=== PATIENT | male | born 1965 | race Caucasian/White ===

== ENCOUNTER 2017-09-06 20:00 | Emergency (ER) | END 2017-09-07 00:25 | disposition home or self-care (01) ==

== ENCOUNTER 2018-07-07 06:43 | Emergency (ER) | payer OTHER ==
[~2018-07-07] VITALS: Ht 157.5 cm; Wt 69.6 kg
[~2018-07-07 06:43] MED LIST: CIPR500T4 PO; HYDR-4011 PO; NAPR-985 PO; PHEN-537 PO; TAMS-14 PO
[2018-07-07 06:45] VITALS: Ht 157.5 cm; Wt 69.6 kg
[2018-07-07] MEDS ORDERED: KETOROLAC 30 MG INJ IV STA (07:00)
[2018-07-07] MEDS ORDERED: SOD CHLORIDE 0.9% 1,000 ML IV STA (07:00)
[2018-07-07] MEDS ORDERED: ONDANSETRON 4 MG INJ IV STA (07:00)
[2018-07-07] MEDS ORDERED: TAMS-14 PO (07:54)
[2018-07-07] MEDS ORDERED: IBUP-1542 PO (07:54)
[2018-07-07] MEDS ORDERED: HYDR-4011 PO (07:54)
[2018-07-07] MEDS ORDERED: ONDA4TAB8 PO (07:54)
--- NOTE | 2018-07-07 07:56 | ERD ---
ER Documentation Chief Complaint Chief Complaint LEFT SIDED ABD PAIN SINCE LAST NIGHT HPI 52 year old male presents the emergency department complaining of acute onset left flank and left lower quadrant pain. Patient reports the pain is sharp, stabbing, colicky. It radiates towards his groin. It is associated with no hematuria. It makes him nauseous but he has not vomited. He reports no fevers or chills. He reports no diarrhea. Currently he reports the pain is moderate to severe. ROS All systems reviewed and are negative except as per history of present illness. Medications Home Meds Active Scripts Tamsulosin Hcl* (Flomax*) 0.4 Mg Cap.er.24h, 0.4 MG PO QPM, #30 CAP Prov:MARY PAYTON 07/07/18 Ondansetron Hcl* (Zofran*) 4 Mg Tablet, 4 MG PO Q8H PRN for NAUSEA AND/OR VOMITING, #30 TAB Prov:MARY PAYTON 07/07/18 Hydrocodone/Acetaminophen ([place] 5-325 Tablet) 1 Each Tablet, 1 TAB PO Q6H PRN for PAIN, #7 TAB Prov:MARY PAYTON 07/07/18 Ibuprofen* (Ibuprofen*) 600 Mg Tablet, 600 MG PO Q6H PRN for PAIN, #30 TAB Prov:MARY PAYTON 07/07/18 Tamsulosin Hcl* (Flomax*) 0.4 Mg Cap.er.24h, 0.4 MG PO QPM, #15 CAP Prov:YG PEARL PA-C 09/06/17 Naproxen* (Naprosyn*) 500 Mg Tablet, 500 MG PO BID PRN for PAIN AND/OR INFLAMMATION, #30 TAB Prov:YG PEARL PA-C 09/06/17 Hydrocodone/Acetaminophen ([place] 5-325 Tablet) 1 Each Tablet, 1 TAB PO Q6H PRN for PAIN, #7 TAB Prov:MAIK KINGSLEY DO 11/28/15 Ciprofloxacin Hcl* (Ciprofloxacin Hcl*) 500 Mg Tablet, 500 MG PO BID for 3 Days, TAB Prov:MAIK KINGSLEY DO 11/28/15 Phenazopyridine Hcl* (Pyridium*) 100 Mg Tab, 100 MG PO TID PRN for URINARY PAIN, #8 TAB Prov:MAIK KINGSLEY DO 11/28/15 Allergies Allergies: Coded Allergies: No Known Allergy (Unverified , 11/28/15) PMhx/Soc History of Surgery: No Anesthesia Reaction: No Hx Neurological Disorder: No Hx Respiratory Disorders: No Hx Cardiac Disorders: Yes (HTN) Hx Psychiatric Problems: No Hx Miscellaneous Medical Probl: No Hx Alcohol Use: No Hx Substance Use: No Hx Tobacco Use: No Smoking Status: Never smoker FmHx Noncontributory for chief complaint Physical Exam Vitals Vital Signs Date Temp Pulse Resp B/P (MAP) Pulse Ox O2 O2 Flow FiO2 Time Delivery Rate 07/07/18 97.4 58 16 178/94 99 06:45 (122) Physical Exam GENERAL: The patient is well developed and appropriate for usual state of health in no apparent distress. He appears uncomfortable HEENT: Pupils equal, round, and reactive to light. EOMI. There is no scleral icterus. NECK: C-spine is soft and supple, there is no meningismus. There is no cervical lymphadenopathy. LUNGS: Clear to auscultation bilaterally. There are no rales, wheezes or rhonchi. HEART: Regular rate and rhythm, no murmurs, clicks, rubs or gallops. ABDOMEN: Soft, non-tender, non-distended. There are bowel sounds in all four quadrants. No rebound or guarding. EXTREMITIES: There is no peripheral cyanosis or edema. No focal swelling or erythema. NEURO: The patient moves all four extremities with 5/5 strength. Cranial nerves II - XII are intact. Normal gait. Alert and oriented SKIN: There is no apparent rash or petechiae. HEME/LYMPHATIC: There is no evidence of excessive bruising or lymphedema. PSYCHIATRIC: The patient does not appear anxious or depressed. Result Diagram: 07/07/18 0710 07/07/18 0710 Results 24 hrs Laboratory Tests Test 07/07/18 07:10 White Blood Count 7.8 10^3/ul Red Blood Count 4.79 10^6/ul Hemoglobin 15.2 g/dl Hematocrit 43.9 % Mean Corpuscular Volume 91.6 fl Mean Corpuscular Hemoglobin 31.7 pg Mean Corpuscular Hemoglobin Concent 34.6 g/dl Red Cell Distribution Width 12.3 % Platelet Count 205 10^3/UL Mean Platelet Volume 11.1 fl Immature Granulocytes % 0.500 % Neutrophils % 65.1 % Lymphocytes % 25.7 % Monocytes % 5.7 % Eosinophils % 2.2 % Basophils % 0.8 % Nucleated Red Blood Cells % 0.0 /100WBC Immature Granulocytes # 0.040 10^3/ul Neutrophils # 5.1 10^3/ul Lymphocytes # 2.0 10^3/ul Monocytes # 0.5 10^3/ul Eosinophils # 0.2 10^3/ul Basophils # 0.1 10^3/ul Nucleated Red Blood Cells # 0.0 10^3/ul Urine Color YELLOW Urine Clarity CLEAR Urine pH 5.0 Urine Specific [place] 1.014 Urine Ketones NEGATIVE mg/dL Urine Nitrite NEGATIVE mg/dL Urine Bilirubin NEGATIVE mg/dL Urine Urobilinogen NEGATIVE mg/dL Urine Leukocyte Esterase NEGATIVE Lita/ul Urine Microscopic RBC 13 /HPF Urine Microscopic WBC 1 /HPF Urine Hemoglobin 2+ mg/dL Urine Glucose NEGATIVE mg/dL Urine Total Protein NEGATIVE mg/dl Sodium Level 141 mmol/L Potassium Level 4.5 mmol/L Chloride Level 104 mmol/L Carbon Dioxide Level 26 mmol/L Anion Gap 11 Blood Urea Nitrogen 20 mg/dl Creatinine 1.20 mg/dl Est Glomerular Filtrat Rate mL/min > 60 mL/min Glucose Level 151 mg/dl Calcium Level 9.2 mg/dl Total Bilirubin 0.8 mg/dl Direct Bilirubin 0.00 mg/dl Indirect Bilirubin 0.8 mg/dl Aspartate Amino Transf (AST/SGOT) 22 IU/L Alanine Aminotransferase (ALT/SGPT) 29 IU/L Alkaline Phosphatase 70 IU/L Total Protein 7.5 g/dl Albumin 4.5 g/dl Globulin 3.00 g/dl Albumin/Globulin Ratio 1.50 Lipase 105 U/L Current Medications Medications Dose Sig/Eleanor Start Time Status Last (Trade) Ordered Route PRN Stop Time Admin Dose Reason Admin Sodium 1,000 ml @ Q1H STAT 07/07/18 07/07/18 Chloride 1,000 mls/hr IV 07:00 07:05 07/07/18 07:59 Ondansetron 4 mg ONCE STAT 07/07/18 DC 07/07/18 HCl (Zofran IV 07:00 07:05 Inj) 07/07/18 07:01 Ketorolac 30 mg ONCE STAT 07/07/18 DC 07/07/18 Tromethamine IV 07:00 07:06 (Toradol) 07/07/18 07:01 Procedures/MDM Patient was taken to a room, seen and evaluated. Comfort measures were initiated. Diagnostic tests were ordered and reviewed. 3 LEAD RHYTHM STRIP: Normal sinus rhythm without ectopy RADIOLOGY: Reviewed with the radiologist REEVALUATION: 0755: Diagnostic tests were appreciated. Patient was reevaluated. His pain was completely resolved. His examination remained benign. MEDICAL DECISION MAKIN-year old male presents the emergency room with left flank and left lower quadrant pain of uncertain etiology. Differential diagnosis entertained included kidney stone disease as well as other intra- abdominal concerns such as diverticulitis. After diagnostic evaluation, it appears clear that the patient's pain is from his kidney stone. There is no evidence of complicating factors including no evidence of ongoing infection. Patient will be treated supportively with pain medication but otherwise appears appropriate for discharge. Departure Diagnosis: Primary Impression: Kidney stone Condition: Stable Patient Instructions: Kidney Stone W/ Colic Additional Instructions: See your doctor for follow-up as discussed. Take a copy of your test results, i f appropriate, to this follow-up visit. See your doctor or return here if your symptoms do not improve as expected. At any time, please return to the emergency department for any change or worsening in her symptoms. MARY PAYTON Jul 07, 2018 07:56
[2018-07-07 08:14] VITALS: BP 147/79; PULSE 78; RESP 16
== END 2018-07-07 08:15 | disposition home or self-care (01) ==
LOC: E/R 06:43
DX: N20.0 Calculus of kidney (principal); I10 Essential (primary) hypertension
CPT/HCPCS: 36415; 74176; 80053; 81001; 83690; 85025; 96361; 96374; 96375; J1885; J2405; J7030; Z7502